=== PATIENT | male | born 1960 | race Caucasian/White ===

== ENCOUNTER → 2024-09-17 11:30 | Outpatient (CLI) | payer MEDICARE, SELFPAY ==
[2024-09-17 12:43] LABS: Add Manual Diff / Slide Review NO; Basophils Absolute Auto 100 /uL (0-100); Basophils Percent Auto 0.9 % (0-2); Eosinophils Absolute Auto 100 /uL (0-450); Eosinophils Percent Auto 1.9 % (2-4); Hematocrit 41.4 % (41-53); Hemoglobin 13.6 g/dL (13.5-17.5); Lymphocytes Absolute Auto 2600 /uL (1100-4500); Lymphocytes Percent Auto 38.5 % (25-40); Mean Corpuscular HGB Conc 32.9 % (30-36); Mean Corpuscular Hemoglobin 30.1 PG (26-34); Mean Corpuscular Volume 91.4 fL (80-100); Monocytes Absolute Auto 900 /uL (0-900); Monocytes Percent Auto 12.6 % (3-14); Neutrophils Absolute Auto 3100 /uL (1500-7000); Neutrophils Percent Auto 46.1 % (50-75); Platelet Count 238 X10^3/uL (150-400); Red Blood Cell Count 4.53 X10^6/uL (4.5-5.9); Red Cell Distribution Width 15.6 % (11.6-14.8); White Blood Cell Count 6.8 X10^3/uL (4.5-11.0)
[2024-09-17 12:51] LABS: Hemoglobin A1C% w Est Avg Glu 5.2 % (4.0-6.0)
[2024-09-17 13:03] LABS: Alanine Aminotransferase 23 IU/L (<50); Albumin 4.5 g/dL (3.5-5.0); Albumin Globulin Ratio 1.7 (1.0-2.8); Alkaline Phosphatase 93 U/L (38-126); Aspartate Aminotransferase 25 IU/L (17-59); BUN Creatinine Ratio 18.4 (6-22); Bilirubin Total 0.8 mg/dL (0.2-1.3); Blood Urea Nitrogen 16 mg/dL (9-20); Calcium 9.8 mg/dL (8.4-10.2); Carbon Dioxide 28 mmol/L (22-32); Chloride 102 mmol/L (98-107); Cholesterol 161 mg/dL (140-199); Estimated Glomerular Filt Rate > 60 mL/min (>60); Globulin 2.7 g/dL (1.7-4.1); Glucose 101 mg/dL (80-110); HDL Cholesterol 70 mg/dL (40-60); HEMOLYSIS < 15 (0-50); LDL Cholesterol Calculated 78 mg/dL (<100); Potassium 4.4 mmol/L (3.4-5.1); Sodium 138 mmol/L (137-145); Total Protein 7.2 g/dL (6.3-8.2); Triglycerides 63 mg/dL (35-150)
[2024-09-17 13:33] LABS: Prostate Specific Antigen Scrn 0.705 ng/mL (0.1-4.0)
== END ==
PROVIDERS: PCP Family Medicine; Referring Provider Family Medicine; Visit Provider Family Medicine
DX: Z00.00 Encounter for general adult medical examination without abnormal findings (principal); I10 Essential (primary) hypertension; Z79.899 Other long term (current) drug therapy; Z12.5 Encounter for screening for malignant neoplasm of prostate; Z82.0 Family history of epilepsy and other diseases of the nervous system; E78.00 Pure hypercholesterolemia, unspecified
CPT/HCPCS: 36415; 80053; 80061; 83036; 85025; G0103

== ENCOUNTER 2024-11-10 10:51 | Day surgery (SDC) | payer MEDICARE, SELFPAY ==
--- NOTE | 2024-11-10 | PATH_ITS ---
[facility] Accession Number: [id number] No. of containers..01 Tissue . 01 Material submitted: . colon - COLON, POLYP AT 25 . 01 Diagnosis: COLON, POLYP AT 25: Tubular adenoma. STO 11/14/2024 1449 Local . 01 Electronically signed: . Urbano Flynn MD, Pathologist NPI- [id number] . 01 Gross description: . POLYP AT 25: Received in formalin are multiple fragment(s) of culver, soft tissue measuring 0.3 x 0.3 x 0.2 cm to 0.6 x 0.5 x 0.4 cm submitted entirely in 1 cassette(s) /MARISSA 11/14/2024 [facility]9 Local . 01 Pathologist provided ICD-10: D12.6 . 01 CPT . 637176 Specimen Comment: A courtesy copy of this report has been sent to [phone] Performed at: [address] [facility] [address], [place], [place] [id number] MD Urbano Flynn MD Phone: [phone]
[2024-11-10 11:26] VITALS: BP 152/82; PULSE 64; RESP 17; TEMP 36.3; O2SAT 98
[2024-11-10] MEDS: LACTATED RINGERS 1,000 ML 42 ML IV (11:29)
--- NOTE | 2024-11-10 11:39 | P.HP_ITS ---
History of Present Illness History of Present Illness Date Patient Seen: 11/10/24 Chief complaint: Colonoscopy Narrative: Screening [facility] Medical History (Updated 09/04/24 @ 19:33 by Bettye Russell) Vision disorder Hearing decreased ADHD (~1997) Mumps Measles Chicken pox Tinnitus (~1994) BPH (benign prostatic hyperplasia) Depression Hypercholesterolemia Hypertension (~2003) Family history of Alzheimer's disease Family History (Updated 09/04/24 @ 19:35 by Bettye Russell) Father Hypertension Mother Senile Hypertension Grandfather Mental health problem Grandmother Stroke Social History Smoking Status: Never smoker alcohol intake: never Meds Home Medications and Allergies Home Medications Medication Instructions Recorded Confirmed Type fluoxetine 20 mg capsule 40 mg (2 x 20 mg) PO DAILY #90 caps 08/13/24 11/10/24 Rx atorvastatin 40 mg tablet 40 mg PO DAILY #90 tabs 09/17/24 11/10/24 Rx hydrochlorothiazide 25 mg tablet 25 mg PO DAILY #90 tabs 09/17/24 11/10/24 Rx lisinopril 20 mg tablet 20 mg PO DAILY #90 tabs 09/17/24 11/10/24 Rx tamsulosin 0.4 mg capsule 0.4 mg PO DAILY #90 caps 09/17/24 11/10/24 Rx Allergies Allergy/AdvReac Type Severity Reaction Status Date / Time Penicillins Allergy Mild Happened Verified 11/10/24 11:07 as child Exam Vital Signs (past 8 hours): - 11/10/24 11:26 Temperature 97.3 F L Pulse Rate 64 Respiratory Rate 17 Blood Pressure 152/82 H Pulse Oximetry 98 Oxygen Delivery Method Room Air Oxygen Delivery Method Room Air Narrative Exam Narrative: Oropharynx free of lesions Assessment & Plan Assessment & Plan narrative: Screening colonoscopy with last colonoscopy about 10 years ago. Risks benefits and alternatives have been explained. Time-Based Coding :: [TOTAL MINUTES] spent with patient and on the chart (including review of chart, obtaining history, exam, reviewing outside data, placing orders, documenting exam and treatment plan, and counseling patient) on [DATE]. [employer] Document charge(s): No
--- NOTE | 2024-11-10 11:41 | PM.OP.COLON ---
Operative Date/Time/Diagnoses Date of procedure: 11/10/24 Time of procedure: 12:11 Pre-op diagnosis: See indication and findings Post-op diagnosis: same Procedure & Clinicians Study performed: Colonoscopy Same procedure as scheduled: Yes Indications: Screening Surgeon: Pal Will Procedure Notes Procedure in detail: After informed consent was obtained the patient was placed in left lateral decubitus position. The video colonoscope was inserted into the rectum slowly advanced to the cecum. Preparation was good. On slow withdrawal mucosa was carefully examined. The scope was removed. The patient tolerated procedure well. Blood loss none complications none Sedation mac Findings 1.
[2024-11-10 12:18] VITALS: BP 100/70; PULSE 54; RESP 16; TEMP 36.2; O2SAT 98
[2024-11-10 12:23] VITALS: BP 87/55; PULSE 57; RESP 16; TEMP 36.2; O2SAT 98
[2024-11-10 12:50] VITALS: BP 116/74; PULSE 54; RESP 15; TEMP 36.2; O2SAT 100
--- NOTE | 2024-11-10 15:28 | SUR.PHASEII ---
Patient sat at the side of the bed and vomited clear fluid. He requested to get dressed after vomiting, spouse present. Patient taken to the bathroom by wheelchair and requested to discharge. He reported his nausea improved and his RUE pain was 3/10. Patient requested a sling for comfort, VTO from Dr. Kinsey patient may have sling. Large sling placed for comfort.
== END 2024-11-10 13:01 | disposition home or self-care (01) ==
PROVIDERS: PCP Family Medicine; Referring Provider Internal Medicine Gastroenterology; Visit Provider Internal Medicine Gastroenterology
PROC: 0DJD8ZZ Inspection of Lower Intestinal Tract, Via Natural or Artificial Opening Endoscopic (ICD-10-PCS; CPT 45378; principal; 2024-11-10 12:00)
DX: Z12.11 Encounter for screening for malignant neoplasm of colon (principal); D12.6 Benign neoplasm of colon, unspecified
CPT/HCPCS: 45385; J2704